=== PATIENT | male | born 1955 | race Caucasian/White ===

== ENCOUNTER 2019-05-08 13:40 | Emergency (ER) | payer OTHER, MEDICARE, SELFPAY ==
[2019-05-08 13:43] VITALS: BP 160/99; PULSE 80; RESP 16; TEMP 36.9; O2SAT 98; BMI 32.0
[2019-05-08 14:02] VITALS: BP 160/98; PULSE 94; RESP 15; O2SAT 97
--- NOTE | 2019-05-08 14:14 | CT_ITS ---
STUDY: CT ABDOMEN AND PELVIS WITHOUT CONTRAST REASON FOR EXAM: Male, 64 years old. Abdominal pain RADIATION DOSAGE (If Supplied By Facility): CTDIvol = ( 14.44 ) mGy, DLP = ( 690.18 ) mGycm TECHNIQUE: Transaxial images were obtained from the dome of the diaphragm to the symphysis pubis without oral contrast, and without intravenous contrast. Sagittal and coronal images were reconstructed. Individualized dose optimization techniques were used for this CT. COMPARISON: None. FINDINGS: Some right lower lobe scarring. The visualized portions of the heart are within normal limits. Normal liver. Normal gallbladder and extrahepatic biliary system. Normal spleen. Normal pancreas. Normal bilateral adrenal glands. 3 mm nonobstructing stone in the midsection the right kidney. 2 mm obstructing stone at the right ureterovesical junction with mild ureteral dilatation, moderate hydronephrosis, and perinephric edema. Normal left kidney. Normal visualized stomach. Normal small intestine. Normal colon. The appendix is visualized and appears normal. Normal abdominal aorta. Normal inferior vena cava. Normal retroperitoneum. Normal urinary bladder. There is a small umbilical hernia containing fat. Normal osseous structures. CT/Abdomen/Pelvis without Cont IMPRESSION: 2 mm obstructing stone at the right ureteral vesicle junction with mild ureteral dilatation, moderate hydronephrosis, and perinephric edema. Electronically Signed: Zaki Michel MD at 15:10 EDT Tel , Service support ,
--- NOTE | 2019-05-08 14:47 | ED.VISSUMM ---
- ER Visit Summary Date of Service: 05/08/19 Chief Complaint: Right flank pain History of Present Illness: The patient is a 64 M who presents the emergency department for evaluation of her right flank pain. Patient states he felt fine yesterday at approximately 0230 hours he is awoken from sleep with a severe right flank pain right-sided abdominal pain. No nausea vomiting. No diarrhea. Describes the pain is sharp stabbing and waxing and waning. No prior history of kidney stones. He does not typically see a doctor and currently takes no medications. Physical Examination: Afebrile vital signs stable Gen: Well-nourished well-developed Head: Normocephalic atraumatic Eyes: Perrl EOMI ENT: TMs clear no rhinorrhea moist mucous membranes Neck: Supple no lymphadenopathy no JVD nontender CVS: Regular rate rhythm no murmurs normal S1-S2 Respiratory: No distress clear to auscultation bilaterally chest nontender Abdomen: Soft nontender nondistended normal bowel sounds no masses Back: Nontender Extremity: Nontender no edema Skin: Normal color no rash Neuro: alert orientated ?3 CN II-XII intact normal strength sensation Psych: Normal affect normal mood Test Results: White count at 13.4. Creatinine 1.22. CT noncontrast of the abdomen pelvis demonstrates a distal 2 mm obstructing stone. There is moderate hydronephrosis as well as stranding. Emergency Department Course and Treatment: Patient received fluids and we will obtain a urine specimen. As long as it does not show infection he will be discharged home with a prescription for pain medication and follow-up. If he is worsening he may certainly return to the emergency department. I would expect the stone to be able to be passed. Impression: 1. Right distal ureterolithiasis 2 mm with colic 2. Moderate hydronephrosis This note was generated with [employer] dictation software. It may contain incorrect words, spelling, and punctuation that were not noted in review of the chart prior to signing <Ajay Bruce - Last Filed: 05/08/19 15:18> - ER Visit Summary Date of Service: 05/08/19 Chief Complaint: [] History of Present Illness: The patient is a 64 M [] Physical Examination: [] Test Results: [] Emergency Department Course and Treatment: [] Treatment Plan: Patient signed out to me pending urine. Urine noted 25 leukocytes however negative nitrites and normal white cells. Send for urine culture, reevaluate patient he is comfortable in symptom control he denies any urine symptoms. Will hold antibiotics at this time discussed with patient any worsening symptoms not controlled with medicines or belts fevers he needs to return to the ED otherwise he will strain his urine follow-up as discussed. All questions answered. Disposition: Discharge Impression: As above This note was generated with [employer] dictation software. It may contain incorrect words, spelling, and punctuation that were not noted in review of the chart prior to signing <Leonardo Joseph - Last Filed: 05/08/19 17:01> ED Disposition <Ajay Bruce - Last Filed: 05/08/19 15:18> <Leonardo Joseph - Last Filed: 05/08/19 17:01> - Plan for ED Patient: Disposition: Home or Assisted Living Instructions: KIDNEY STONE w/ Colic Prescriptions: Hydrocodone Bitart/Apap 5-325 [[place] 5MG-325MG] 1 tab PO Q6H PRN PRN 3 Days #12 tab PRN Reason: Pain Prescription Printed Ondansetron [Zofran Odt] 4 mg PO Q6H PRN PRN #10 tab PRN Reason: Nausea Prescription Printed Referrals: Néstor Heath MD [STAFF PHYSICIAN] - 3-5 Days if not improving
[2019-05-08 14:51] LABS: Absolute Lymphocyte Count 0.64 X10^3/uL (0.83-4.51); Absolute Neutrophil Count 11.6 X10^3/uL (2.0-7.7); Basophil# 0.02 X10^3/uL; Basophil% 0.2 % (0-1); Hematocrit 48.8 % (40-54); Hemoglobin 15.9 g/dL (13.0-16.5); Lymphocyte # 0.64 X10^3/ul (4.0); Lymphocyte % 4.9 % (19-41); Mean Corp Hgb Conc 32.6 g/dL (32-36); Mean Corpuscular Hgb 30.4 pg (27.0-32.0); Mean Corpuscular Volume 93.3 fL (80-94); Mean Platelet Vol. 10.6 fl (6.2-12.0); Monocyte# 0.66 X10^3/uL; Monocyte% 5.1 % (0-10); NRBC Flagged by Analyzer 0 % (0-5); Neutrophil # 11.62 X10^3/uL (2.7-7.7); Neutrophil % 89.5 % (47-70); Platelet Count 256 K/mm3 (150-450); RBC Distribution Width CV 13.8 % (11.6-14.6); RBC Distribution Width SD 47.6 fl (35.1-43.9); Red Blood Count 5.23 M/mm3 (4.6-6.2)
[2019-05-08 14:58] LABS: Anion Gap 7 (5-15); BUN 22 mg/dL (7-18); Calcium,Total 9.8 mg/dL (8.5-10.1); Chloride 108 mmol/L (98-107); Creatinine, Serum 1.22 mg/dL (0.70-1.30); EST Glomerular Filtration Rate 63 mL/min (>60); Est Glom Filt Rate - Afr Amer 77 mL/min (>60); Estimated Creatinine Clearance 54.47 ml/min; Glucose 122 mg/dL (74-106); Potassium 4.5 mmol/L (3.5-5.1); Sodium Level 141 mmol/L (136-145)
[2019-05-08] MEDS: 0.9% Normal Saline 1,000 ML 250 ML IV (15:25)
[2019-05-08] MEDS: Ketorolac 30 MG/ML Syringe IV (15:26)
[2019-05-08 16:00] VITALS: BP 174/99; PULSE 86; RESP 16; O2SAT 96
[2019-05-08 16:08] LABS: Bacteria 0 SEEN /hpf (None Seen); Red Blood Cells-Urine 0 SEEN /hpf (0-5); Squamous Epithelial Cells - UA 0 SEEN /hpf (0-5)
[2019-05-08 16:14] LABS: Color, Urine Yellow (Yellow); Glucose, Dipstick Normal (Normal); Ketone-Dipstick 50 mg/dl (Negative); Leukocyte Esterase-Dipstick 25 /ul (Negative); Nitrite-Dipstick Negative (Negative); Occult Blood-Urine 10 /ul (Negative); Protein-Dipstick Negative (Negative); Specific Gravity, Urine 1.015 (1.002-1.030); Urine Bilirubin Dipstick Negative (Negative); Urine Clarity Clear (Clear); Urine Urobilinogen Normal (Normal)
[2019-05-08 16:26] LABS: Mucous, Urine 2+ /hpf (<or=2+); White Blood Cells 0-5 SEEN /hpf (0-5)
[2019-05-08 17:10] VITALS: BP 160/96; PULSE 76; RESP 16; O2SAT 97
--- NOTE | 2019-05-08 17:10 | ED.RN ---
IV DC'ED, CATHETER INTACT, SMALL GAUZE DRESSING PLACED. DISCHARGE INSTRUCTIONS GIVEN TO AND REVIEWED WITH PATIENT, PATIENT DENIES QUESTIONS OR CONCERNS AND VOICES UNDERSTANDING OF DISCHARGE INSTRUCTIONS. PT AMBULATES OUT OF ROOM WITHOUT DIFFICULTY.
== END 2019-05-08 17:11 | disposition home or self-care (01) ==
PROVIDERS: Emergency Provider Emergency Medicine
DX: N13.2 Hydronephrosis with renal and ureteral calculous obstruction (principal); Z87.891 Personal history of nicotine dependence
CPT/HCPCS: 74176; 80048; 81001; 85025; 87077; 87086; 87088; 96360; 96361; 99283; J7030; A4216

== ENCOUNTER 2019-12-10 19:59 | Emergency (ER) | payer OTHER, SELFPAY ==
[2019-12-10 20:00] VITALS: BP 159/108; PULSE 98; RESP 16; TEMP 37.2; O2SAT 95; BMI 32.7
[2019-12-10] MEDS: HYDROcodone Bitartrate/Apap 5/325 Tablet PO (20:24)
[2019-12-10] MEDS: Diphth,Pertuss(Acell),Tet Vac 0.5 ML Vial IM (20:24)
--- NOTE | 2019-12-10 20:30 | RAD_ITS ---
STUDY: X-RAY - LEFT KNEE REASON FOR EXAM: Male, 64 years old. Fall TECHNIQUE: 3 view(s) of the knee. COMPARISON: None. FINDINGS: There is no evidence of fracture or dislocation. There are mild degenerative changes noted. There is a moderate-sized joint effusion. There is soft tissue swelling noted. There are no radiodense foreign bodies. RAD/Knee 4 or More Views IMPRESSION: No fracture or dislocation in left knee. Moderate joint effusion. Soft tissue swelling. Electronically Signed: Jb Bernal, at 20:48 EDT Tel , Service support ,
--- NOTE | 2019-12-10 21:03 | ED.VISSUMM ---
- ER Visit Summary Date of Service: 12/10/19 Chief Complaint: Left knee pain History of Present Illness: The patient is a 64 M with no primary care physician. He reports that yesterday he was cleaning his garage and a big stack of handing fell onto him and he injured his left knee. He denies any other injuries. No blow to the head or loss of consciousness. Is not on anticoagulants. No neck or back pain. Patient reports he has sharp pain in his left knee that is 9 at 10 at worst and 5-10 currently. Is worsened by walking relieved by rest. He denies any numbness, weakness, or other complaints. Physical Examination: Vitals: Stable. Afebrile. Neck: No vertebral tenderness. Full ROM without difficulty. Cleared by NEXUS criteria. Back: No vertebral tenderness. General: A&O x 3. NAD. Cardiovascular exam: Regular rate and rhythm, no murmur, rub or gallop. Respiratory exam: Chest nontender. No crepitus. Clear to auscultation bilaterally. No wheezes or stridor. Abdominal exam: Soft, nontender, nondistended, normal bowel sounds. No pain in RUQ or LUQ specifically. No peritoneal signs. Extremity: Abrasion over the anterior surface of his left knee. No erythema or evidence of infection. He has diffuse tenderness to palpation over his entire knee. No point tenderness. He does have a moderate joint effusion. He has decreased range of motion secondary to pain. He has pain, but no ligamentous instability with anterior/posterior drawer or medial/lateral stress. He is neuro vas intact distally.. Test Results: Clinical Impression(s) from Imaging Studies Knee X-Ray 12/10/19 20:30 IMPRESSION: No fracture or dislocation in left knee. Moderate joint effusion. Soft tissue swelling. Electronically Signed: Jb Xiongjody, at 20:48 EDT Tel , Service support , Emergency Department Course and Treatment: Patient was treated with Matthews. He is resting comfortably. He had his tetanus updated with Adacel. Treatment Plan: Patient already has crutches. He will be discharged with weightbearing as tolerated. Given prescription for Matthews. Instructed to follow-up Dr. Ander Doyle in 1 week if not improving. Return to the emergency department for any worsening symptoms. Disposition: To home in improved and stable condition. Impression: 1 1. Left knee pain, acute. This note was generated with [employer] dictation software. It may contain incorrect words, spelling, and punctuation that were not noted in review of the chart prior to signing ED Disposition - Plan for ED Patient: Disposition: Home or Assisted Living Instructions: ED Knee Pain [facility] Prescriptions: Hydrocodone Bitart/Apap 5-325 [[place] 5MG-325MG] 1 tab PO Q6H PRN PRN 3 Days #10 tab PRN Reason: Pain Prescription Printed Referrals: Ander Dolye MD [STAFF PHYSICIAN] - 1 Week if not improving
[2019-12-10 21:20] VITALS: RESP 16
--- NOTE | 2019-12-10 21:21 | ED.RN ---
REVIEWED D/C INSTRUCTIONS, FOLLOW UP CARE, PRESCRIPTION, AND S/S THAT WOULD WARRANT A RETURN TO THE ED WITH PT. PT VERBALIZED AN UNDERSTANDING AND DENIES FURTHER QUESTIONS FOR THIS RN. PT SKIN P/W/D, RESP EVEN AND UNLABORED, PT A&O X 3, NO DISTRESS NOTED. PT AMBULATED OUT OF ED, GAIT STEADY.
== END 2019-12-10 21:22 | disposition home or self-care (01) ==
LOC: ED 20:49
PROVIDERS: Emergency Provider Emergency Medicine
DX: M25.562 Pain in left knee (principal); M25.462 Effusion, left knee; Z23 Encounter for immunization
CPT/HCPCS: 73564; 90471; 90715; 99283